=== PATIENT | male | born 1945 | race Two or more races ===

== ENCOUNTER → 2020-04-04 | Outpatient (CLI) | payer MEDICARE, BC ==
[~2020-04-04] MED LIST: ASPI81EC PO; LOVA20 PO; METF500; METF500 PO; NAPR500 PO; PRAV20 PO; Percocet 5-3251 EACH PO; TRAM50 PO
== END ==
LOC: LAB 10:09 → LAB SHORT 10:09
DX: K29.60 Other gastritis without bleeding (principal); B96.81 Helicobacter pylori [H. pylori] as the cause of diseases classified elsewhere
CPT/HCPCS: 87338

== ENCOUNTER 2020-05-17 12:01 | Day surgery (SDC) | payer MEDICARE, BC ==
[~2020-05-17] VITALS: Ht 172.7 cm; Wt 73.1 kg
[~2020-05-17 12:01] MED LIST changes: +ASPIR 8181 MG PO; +Glucophage 850850 MG PO
--- NOTE | 2020-05-17 12:50 | NUR ---
05/17/20 1250 Juan Briones CALL LIGHT WITHIN REACH. FAMILY AT BEDSIDE.
== END 2020-05-17 14:16 | disposition home or self-care (01) ==
LOC: ORSCSDS 12:01
PROVIDERS: Internal Medicine Gastroenterology
PROC: 0DBL8ZX Excision of Transverse Colon, Via Natural or Artificial Opening Endoscopic, Diagnostic (ICD-10-PCS; principal; 2020-05-17 13:15)
PROC: 0DBM8ZX Excision of Descending Colon, Via Natural or Artificial Opening Endoscopic, Diagnostic (ICD-10-PCS; principal; 2020-05-17 13:15)
DX: Z12.11 Encounter for screening for malignant neoplasm of colon (principal); Z86.010 Personal history of colon polyps; D12.3 Benign neoplasm of transverse colon; D12.4 Benign neoplasm of descending colon; K64.8 Other hemorrhoids; K64.4 Residual hemorrhoidal skin tags; K57.30 Diverticulosis of large intestine without perforation or abscess without bleeding; E11.9 Type 2 diabetes mellitus without complications; E78.00 Pure hypercholesterolemia, unspecified; E55.9 Vitamin D deficiency, unspecified; F41.9 Anxiety disorder, unspecified; N18.30 Chronic kidney disease, stage 3 unspecified; Z79.82 Long term (current) use of aspirin; Z79.84 Long term (current) use of oral hypoglycemic drugs; Z79.899 Other long term (current) drug therapy
CPT/HCPCS: 82947; 88305; J2704; J7120

== ENCOUNTER 2022-12-15 16:24 | Emergency (ER) | payer MEDICARE ==
[~2022-12-15] VITALS: Ht 172.7 cm; Wt 72.6 kg
[2022-12-15 16:42] VITALS: BP 141/86
[2022-12-15] MEDS ORDERED: ANECREAM515 G1 TOP (17:34)
[2022-12-15] MEDS ORDERED: HYDCOR2.5C PR (17:34)
[2022-12-15] MEDS ORDERED: DOC250 PO (17:34)
== END 2022-12-15 18:00 | disposition home or self-care (01) ==
LOC: ER 16:24
DX: K64.4 Residual hemorrhoidal skin tags (principal); E11.9 Type 2 diabetes mellitus without complications; Z79.82 Long term (current) use of aspirin; Z79.84 Long term (current) use of oral hypoglycemic drugs
CPT/HCPCS: A9270

== ENCOUNTER → 2023-05-19 | Outpatient (CLI) | payer MEDICARE ==
[~2023-05-19] MED LIST changes: +ANECREAM515 G1 TOP; +DOC250 PO; +HYDCOR2.5C PR
== END ==
LOC: LAB 17:34 → LAB SHORT 17:34
DX: L02.91 Cutaneous abscess, unspecified (principal)
CPT/HCPCS: 87070; 87075; 87077; 87147; 87186; 87205